=== PATIENT | female | born 1990 | race Caucasian/White ===

== ENCOUNTER 2017-11-08 01:25 | Inpatient (IN) | payer BC ==
[2017-11-08] MEDS ORDERED: CARBOPROST 250 MCG INJ IM ×2 (02:30→04:30)
[2017-11-08] MEDS ORDERED: OXYTOCIN 30 UNITS/LR 500 ML IV ×4 (02:30→05:14)
[2017-11-08] MEDS ORDERED: MISOPROSTOL 200 MCG TAB PR ×2 (02:30→04:30)
[2017-11-08] MEDS ORDERED: METHYLERGONOVINE 0.2 MG INJ IM ×2 (02:30→04:30)
[2017-11-08] MEDS: LACTATED RINGER'S 1,000 ML IV ×7 (02:45→21:38)
[2017-11-08 02:57] LABS: ADD MAN DIFF? NO
[2017-11-08 03:03] LABS: WHITE BLOOD COUNT 10.3 10^3/ul (4.8-10.8)
[2017-11-08 03:03] LABS: BASOPHILS % 0.3 % (0.0-2.0); EOSINOPHILS % 0.2 % (0.0-7.0); HEMATOCRIT 33.3 % (37.0-47.0); HEMOGLOBIN 11.2 g/dl (12.0-16.0); LYMPHOCYTES # 1.5 10^3/ul (0.8-2.9); LYMPHOCYTES % 14.9 % (15.0-51.0); MEAN CORPUSCULAR HEMOGLOBIN 27.7 pg (29.0-33.0); MEAN CORPUSCULAR HGB CONC 33.6 g/dl (32.0-37.0); MEAN CORPUSCULAR VOLUME 82.4 fl (82.0-101.0); MONOCYTE # 0.6 10^3/ul (0.3-0.9); MONOCYTES % 5.8 % (0.0-11.0); NEUTROPHIL # 8.1 10^3/ul (1.6-7.5); NEUTROPHILS % 78.3 % (39.0-77.0); PLATELET COUNT 208 10^3/UL (140-415); RED BLOOD COUNT 4.04 10^6/ul (4.20-5.40); RED CELL DISTRIBUTION WIDTH 15.4 % (11.5-14.5)
[2017-11-08 03:18] LABS: INR 0.96; PROTIME 12.9 Sec (11.9-14.9)
[2017-11-08 03:19] LABS: PARTIAL THROMBOPLASTIN TIME 24.7 Sec (25.0-35.0)
[2017-11-08] MEDS: CITRIC ACID/SODIUM CITRATE 15 ML CUP PO (04:10)
[2017-11-08] MEDS: METOCLOPRAMIDE 10 MG INJ IV (04:12)
[2017-11-08] MEDS: FAMOTIDINE 20 MG INJ IV (04:13)
[2017-11-08] MEDS: CEFAZOLIN 2 GM/50 ML (PMX) 50 ML IV (04:18)
[2017-11-08] MEDS ORDERED: morphine SULFATE/PF (10 MG/10 ML) INJ (04:19)
[2017-11-08] MEDS ORDERED: FENTAnyl 50 MCG/ML VIAL (04:19)
[2017-11-08] MEDS ORDERED: CEFAZOLIN 1 GM/50 ML (PMX) 50 ML IV (04:30)
[2017-11-08] MEDS ORDERED: PHENYLephrine (100 MCG/ML) 5ML SYG ×2 (04:34→05:09)
[2017-11-08] MEDS ORDERED: ONDANSETRON 4 MG INJ (04:54)
[2017-11-08] MEDS ORDERED: MEPERIDINE 25 MG INJ IV (05:00)
[2017-11-08] MEDS ORDERED: KETOROLAC 30 MG INJ IV (05:00)
[2017-11-08] MEDS ORDERED: HYDROmorphONE (0.2 MG/ML) 10ML SYG IV (05:00)
[2017-11-08] MEDS ORDERED: ONDANSETRON 4 MG INJ IV ×2 (05:00→09:00)
[2017-11-08] MEDS ORDERED: DIPHENHYDRAMINE 50 MG INJ IV ×2 (05:00→09:00)
[2017-11-08] MEDS ORDERED: FENTAnyl 50 MCG/ML VIAL IV (05:00)
[2017-11-08] MEDS ORDERED: PROCHLORPERAZINE 10 MG INJ IV (05:00)
[2017-11-08 05:15] LABS: HEPATITIS B SURFACE ANTIGEN NEGATIVE (NEGATIVE)
[2017-11-08] MEDS: OXYTOCIN 30 UNITS/LR 500 ML IV (08:48)
[2017-11-08] MEDS ORDERED: HYDROmorphONE 0.5 MG/0.5 ML SYG IV ×2 (09:00)
[2017-11-08] MEDS ORDERED: NALOXONE (0.4 MG/ML) INJ IV (09:00)
[2017-11-08] MEDS ORDERED: ZOLPIDEM 5 MG TAB PO (09:00)
[2017-11-08] MEDS: KETOROLAC 30 MG INJ IV (10:59)
[2017-11-08] MEDS: CEFAZOLIN 1 GM/50 ML (PMX) 50 ML IVPB ×2 (12:06→20:15)
[2017-11-08 17:03] LABS: RAPID PLASMA REAGIN NONREACTIVE (NR)
[2017-11-09] MEDS: LACTATED RINGER'S 1,000 ML IV (02:05)
[2017-11-09] MEDS: CEFAZOLIN 1 GM/50 ML (PMX) 50 ML IVPB (03:27)
[2017-11-09] MEDS: IBUPROFEN 600 MG TAB PO ×4 (05:26→23:33)
[2017-11-09 09:15] LABS: ADD MAN DIFF? NO
[2017-11-09 09:18] LABS: WHITE BLOOD COUNT 10.8 10^3/ul (4.8-10.8)
[2017-11-09 09:18] LABS: BASOPHILS % 0.2 % (0.0-2.0); EOSINOPHILS % 0.2 % (0.0-7.0); HEMOGLOBIN 10.7 g/dl (12.0-16.0); LYMPHOCYTES # 1.4 10^3/ul (0.8-2.9); LYMPHOCYTES % 12.6 % (15.0-51.0); MEAN CORPUSCULAR HEMOGLOBIN 28.1 pg (29.0-33.0); MEAN CORPUSCULAR HGB CONC 33.4 g/dl (32.0-37.0); MEAN PLATELET VOLUME 10.7 fl (7.4-10.4); MONOCYTE # 0.7 10^3/ul (0.3-0.9); MONOCYTES % 6.6 % (0.0-11.0); NEUTROPHIL # 8.6 10^3/ul (1.6-7.5); NEUTROPHILS % 79.8 % (39.0-77.0); PLATELET COUNT 189 10^3/UL (140-415); RED BLOOD COUNT 3.81 10^6/ul (4.20-5.40); RED CELL DISTRIBUTION WIDTH 15.6 % (11.5-14.5)
[2017-11-10] MEDS: HYDROCODONE/APAP (5/325) TAB PO ×2 (01:36→13:46)
[2017-11-10] MEDS: IBUPROFEN 600 MG TAB PO ×4 (05:29→23:25)
[2017-11-10] MEDS: MAGNESIUM HYDROXIDE 30ML CUP PO (13:47)
[2017-11-11] MEDS: IBUPROFEN 600 MG TAB PO ×2 (05:57→12:19)
[2017-11-11] MEDS: HYDROCODONE/APAP (5/325) TAB PO (08:41)
== END 2017-11-11 12:50 | disposition home or self-care (01) | DRG 765 ==
LOC: L-D 01:25 → PP1 09:46
PROVIDERS: Obstetrics & Gynecology
PROC: 10D00Z1 Extraction of Products of Conception, Low, Open Approach (ICD-10-PCS; principal; 2017-11-08)
DX: O34.211 Maternal care for low transverse scar from previous cesarean delivery (principal); O99.214 Obesity complicating childbirth; E66.9 Obesity, unspecified; K92.89 Other specified diseases of the digestive system; O99.62 Diseases of the digestive system complicating childbirth; Z37.0 Single live birth; Z3A.39 39 weeks gestation of pregnancy; Z68.41 Body mass index [BMI] 40.0-44.9, adult
CPT/HCPCS: 85025; 85610; 85730; 86592; 86850; 86900; 86901; 87340; 94760; 99464